=== PATIENT | male | born 1950 ===

== ENCOUNTER 2020-10-23 11:53 | Outpatient (CLI) | payer OTHER | END 2020-10-23 11:57 | disposition home or self-care (01) | LOC: LAB 11:53 | PROVIDERS: ATTEND Radiology Diagnostic Radiology | DX: N20.0 Calculus of kidney (principal) ==

== ENCOUNTER 2020-11-03 09:02 | Outpatient (CLI) | payer OTHER | END 2020-11-03 09:08 | disposition home or self-care (01) | LOC: TOM 09:02 | DX: J32.0 Chronic maxillary sinusitis (principal); D14.0 Benign neoplasm of middle ear, nasal cavity and accessory sinuses | CPT/HCPCS: 70488; Q9965 ==